=== PATIENT | female | born 1990 | race American Indian/Alaskan Native ===

== ENCOUNTER 2020-12-22 03:33 | Inpatient (IN) | payer BC ==
[2020-12-22] MEDS ORDERED: diphenhydrAMINE 50 MG/ML SDV IVPUSH ONE (03:49)
[2020-12-22] MEDS ORDERED: Famotidine 20 MG/2 ML SDV IVPUSH ONE (03:52)
[2020-12-22] MEDS ORDERED: methylPREDNISolone Sodium Succinate 125 MG/2 ML SDV IVPUSH ONE (03:52)
[2020-12-22 04:25] LABS: ANION GAP 18.4 mEq/L (7-13); CHLORIDE,CL 98 mmol/L (98-107); SODIUM,NA 135 mmol/L (136-145)
[2020-12-22] MEDS ORDERED: Sodium Chloride 0.9% 1,000 ML IV ONE ×2 (04:43→06:20)
--- NOTE | 2020-12-22 05:23 | EDM.PDOC ---
ED HPI GENERAL MEDICAL PROBLEM - General Chief Complaint: Respiratory Problem Stated Complaint: can't breathe Time Seen by Provider: 12/22/20 03:37 Source of Information: Reports: Patient, RN, RN Notes Reviewed History Limitations: Reports: Respiratory Distress - History of Present Illness INITIAL COMMENTS - FREE TEXT/NARRATIVE: Patient presents to the ED via personal vehicle with respiratory distress and pruritus. The patient reports she woke up this morning at approximately 0200 to shower and get ready for work. She reports a generalized pruritus prior to getting into the shower and noted a progressive feeling of pressure to her lips and throat while continuing to get ready. When she looked in the mirror she noticed a marked increase to her lips and a raised rash to her face, upper extremities, and trunk. She denies a history of anaphylaxis and denies known environmental allergies. She denies recent illness, fever, shaking chills, headache, cough, chest pain/pressure, nausea, vomiting, or diarrhea. She denies any possible triggers stating she has not come in contact with any new medications, foods, detergents, lotions, creams, or soaps. She denies tobacco, alcohol, or recreational drug use. Frontal Head Pain Score (Numeric/FACES): 9 - Related Data Allergies Allergy/AdvReac Type Severity Reaction Status Date / Time risperidone [From Risperdal] Allergy Cannot Verified 12/22/20 04:15 Remember Home Meds: Home Meds Sertraline HCl [Zoloft] 100 mg PO DAILY 12/22/20 [History] traZODone HCl [Trazodone HCl] 50 mg PO BEDTIME 12/22/20 [History] Past Medical History - Past Health History Medical/Surgical History: Denies Medical/Surgical History Social & Family History - Family History Family Medical History: No Pertinent Family History - Tobacco Use Tobacco Use Status *Q: Former Tobacco User Used Tobacco, but Quit: No - Caffeine Use Caffeine Use: Reports: Soda - Recreational Drug Use Recreational Drug Use: No ED ROS GENERAL - Review of Systems Review Of Systems: Comprehensive ROS is negative, except as noted in HPI. ED EXAM, GENERAL - Physical Exam Exam: See Below Exam Limited By: Respiratory Distress General Appearance: Alert, Severe Distress, Obese Eye Exam: Bilateral Eye: Conjunctival Injection, EOMI, PERRL (3mm) Ears: Normal Canal, Hearing Grossly Normal, Normal TMs. No: Normal External Exam (Erythema to bilateral auricles) Ear Exam: Bilateral Ear: Auricle Normal, Canal Normal, TM normal Throat/Mouth: Inflammation. No: Normal Lips (+3 edema to upper and lower lips), Normal Voice (Hoarse, raspy voice), No Airway Compromise (Edema to posterior oropharnyx) Head: Atraumatic, Normocephalic, Other (Fine urticarial rash to face) Neck: Normal Inspection, Supple, Non-Tender, Full Range of Motion Respiratory/Chest: Lungs Clear, Respiratory Distress, Accessory Muscle Use. No: Crackles, Rales, Rhonchi, Wheezing, Stridor Cardiovascular: Normal Peripheral Pulses, Regular Rate, Rhythm, No Edema, No Gallop, No JVD, No Murmur, No Rub, Tachycardia Peripheral Pulses: 2+: Radial (L), Radial (R) GI/Abdominal: Normal Bowel Sounds, Soft, Non-Tender, No Distention, No Mass, Pelvis Stable, Other (Fine urticarial rash scattered to abdomen) (Female) Exam: Deferred Rectal (Female) Exam: Deferred Back Exam: Full Range of Motion, Other (Fine urticarial rash scattered to back ) Extremities: Normal Range of Motion, Non-Tender, No Pedal Edema, Normal Capillary Refill, Increased Warmth, Redness, Other (Fine urticarial rash scattered to bilateral upper extremities). No: Joint Swelling, Mottled, Pallor Neurological: Alert, Oriented, CN II-XII Intact, Normal Cognition, Normal Gait, No Motor/Sensory Deficits Psychiatric: Anxious, Tearful Skin Exam: Rash (Fine urticarial rash scattered to face, trunk, and upper extremities) Course - Vital Signs Last Recorded V/S: Last Vital Signs Temp 97.2 F 12/22/20 16:00 Pulse 122 H 12/22/20 16:00 Resp 20 12/22/20 16:00 BP 127/79 12/22/20 16:00 Pulse Ox 95 12/22/20 16:00 - Orders/Labs/Meds Orders: Active Orders 24 hr Category Date Time Status CULTURE URINE [RM] Stat Lab 12/22/20 03:38 Received Medication Orders Diphenhydramine HCl (Benadryl) 25 mg IVPUSH Q4H PRN PRN Reason: Itching Last Admin: 12/22/20 18:06 Dose: 25 mg Documented by: Admin: 12/22/20 10:06 Dose: 25 mg Documented by: DANETTE Enoxaparin Sodium (Lovenox) 40 mg SUBCUT DAILY [facility] Last Admin: 12/22/20 09:36 Dose: 40 mg Documented by: DANETTE Sodium Chloride (Normal Saline) 1,000 mls @ 150 mls/hr IV ASDIRECTED [facility] Last Admin: 12/22/20 18:06 Dose: 150 mls/hr Documented by: Infusion: 12/22/20 16:18 Dose: 150 mls/hr Documented by: Admin: 12/22/20 09:37 Dose: 150 mls/hr Documented by: DANETTE Sertraline HCl (Zoloft) 100 mg PO DAILY [facility] Sodium Chloride (Saline Flush) 10 ml FLUSH ASDIRECTED PRN PRN Reason: Keep Vein Open Trazodone HCl (Trazodone) 50 mg PO BEDTIME [facility] Labs: Laboratory Tests 12/22/20 12/22/20 12/22/20 Range/Units 03:38 03:38 03:38 WBC (5.0-10.0) 10^3/uL RBC (4.2-5.4) 10^6/uL Hgb (12.0-16.0) g/dL Hct (37.0-47.0) % MCV (80-100) fL MCH (27.0-34.0) pg MCHC (33.0-35.0) g/dL Plt Count (150-450) 10^3/uL Neut % (Auto) (42.2-75.2) % Lymph % (Auto) (20.5-50.1) % [place] % (Auto) (2-8) % Eos % (Auto) (1.0-3.0) % Baso % (Auto) (0.0-1.0) % Add Manual Diff Neutrophils % (Manual) (42-75) % Lymphocytes % (Manual) (20-50) % Monocytes % (Manual) (2-8) % Eosinophils % (Manual) (1-3) % Atypical Lymphocytes Sodium (136-145) mmol/L Potassium (3.5-5.1) mmol/L Chloride (98-107) mmol/L Carbon Dioxide (21-32) mmol/L Anion Gap (7-13) mEq/L BUN (7-18) mg/dL Creatinine (0.55-1.02) mg/dL Est Cr Clr Drug Dosing mL/min Estimated GFR (MDRD) BUN/Creatinine Ratio (No establ ref range) Glucose (74-99) mg/dL Calcium (8.5-10.1) mg/dL Total Bilirubin (0.2-1.0) mg/dL AST (15-37) U/L ALT (14-59) U/L Alkaline Phosphatase (46-116) U/L Troponin I (0.000-0.056) ng/mL Total Protein (6.4-8.2) g/dL Albumin (3.4-5.0) g/dL Globulin Albumin/Globulin Ratio Urine Color Yellow (YELLOW) Urine Appearance Cloudy (CLEAR) Urine pH 5.5 (5.0-9.0) Ur Specific [place] >= 1.030 (1.005-1.030) Urine Protein 30 H (NEGATIVE) Urine Glucose (UA) 100 H (NEGATIVE) Urine Ketones Trace H (NEGATIVE) Urine Occult Blood Negative (NEGATIVE) Urine Nitrite Negative (NEGATIVE) Urine Bilirubin Small H (NEGATIVE) Urine Urobilinogen 0.2 (0.2-1.0) mg/dL Ur Leukocyte Esterase Small H (NEGATIVE) Urine RBC Not seen /HPF Urine WBC 10-20 H (0-5/HPF) /HPF Ur Epithelial Cells Moderate H (NOT SEEN) /HPF Amorphous Sediment Few (NOT SEEN) /HPF Urine Bacteria Few (0-FEW/HPF) /HPF Urine Mucus Rare (NOT SEEN) /LPF Urine HCG, Qual Negative Urine Opiates Screen Negative (NEGATIVE) Ur Oxycodone Screen Negative (NEGATIVE) Urine Methadone Screen Negative (NEGATIVE) Ur Barbiturates Screen Negative (NEGATIVE) U Tricyclic Antidepress Negative (NEGATIVE) Ur Phencyclidine Scrn Negative (NEGATIVE) Ur Amphetamine Screen Negative (NEGATIVE) U Methamphetamines Scrn Negative (NEGATIVE) Urine MDMA Screen Negative (NEGATIVE) U Benzodiazepines Scrn Negative (NEGATIVE) Urine Cocaine Screen Negative (NEGATIVE) U Marijuana (THC) Screen Negative (NEGATIVE) 12/22/20 12/22/20 12/22/20 Range/Units 03:43 03:48 03:48 WBC 11.2 H (5.0-10.0) 10^3/uL RBC 6.06 H (4.2-5.4) 10^6/uL Hgb 13.7 D (12.0-16.0) g/dL Hct 42.5 (37.0-47.0) % MCV 70.1 L (80-100) fL MCH 22.6 L (27.0-34.0) pg MCHC 32.2 L (33.0-35.0) g/dL Plt Count 485 H (150-450) 10^3/uL Neut % (Auto) 52.0 (42.2-75.2) % Lymph % (Auto) 36.6 (20.5-50.1) % [place] % (Auto) 8.2 H (2-8) % Eos % (Auto) 3.0 (1.0-3.0) % Baso % (Auto) 0.2 (0.0-1.0) % Add Manual Diff Yes Neutrophils % (Manual) 56 (42-75) % Lymphocytes % (Manual) 36 (20-50) % Monocytes % (Manual) 5 (2-8) % Eosinophils % (Manual) 3 (1-3) % Atypical Lymphocytes Few Sodium 135 L (136-145) mmol/L Potassium 3.4 L (3.5-5.1) mmol/L Chloride 98 (98-107) mmol/L Carbon Dioxide 22 (21-32) mmol/L Anion Gap 18.4 H (7-13) mEq/L BUN 11 (7-18) mg/dL Creatinine 0.81 (0.55-1.02) mg/dL Est Cr Clr Drug Dosing 89.29 mL/min Estimated GFR (MDRD) > 60 BUN/Creatinine Ratio 13.6 (No establ ref range) Glucose 255 H (74-99) mg/dL Calcium 8.6 (8.5-10.1) mg/dL Total Bilirubin 0.3 (0.2-1.0) mg/dL AST 52 H (15-37) U/L ALT 100 H (14-59) U/L Alkaline Phosphatase 137 H (46-116) U/L Troponin I < 0.017 (0.000-0.056) ng/mL Total Protein 8.2 (6.4-8.2) g/dL Albumin 3.4 (3.4-5.0) g/dL Globulin 4.8 Albumin/Globulin Ratio 0.7 Urine Color (YELLOW) Urine Appearance (CLEAR) Urine pH (5.0-9.0) Ur Specific [place] (1.005-1.030) Urine Protein (NEGATIVE) Urine Glucose (UA) (NEGATIVE) Urine Ketones (NEGATIVE) Urine Occult Blood (NEGATIVE) Urine Nitrite (NEGATIVE) Urine Bilirubin (NEGATIVE) Urine Urobilinogen (0.2-1.0) mg/dL Ur Leukocyte Esterase (NEGATIVE) Urine RBC /HPF Urine WBC (0-5/HPF) /HPF Ur Epithelial Cells (NOT SEEN) /HPF Amorphous Sediment (NOT SEEN) /HPF Urine Bacteria (0-FEW/HPF) /HPF Urine Mucus (NOT SEEN) /LPF Urine HCG, Qual Urine Opiates Screen (NEGATIVE) Ur Oxycodone Screen (NEGATIVE) Urine Methadone Screen (NEGATIVE) Ur Barbiturates Screen (NEGATIVE) U Tricyclic Antidepress (NEGATIVE) Ur Phencyclidine Scrn (NEGATIVE) Ur Amphetamine Screen (NEGATIVE) U Methamphetamines Scrn (NEGATIVE) Urine MDMA Screen (NEGATIVE) U Benzodiazepines Scrn (NEGATIVE) Urine Cocaine Screen (NEGATIVE) U Marijuana (THC) Screen (NEGATIVE) Meds: Medications Generic Name Dose Route Start Last Admin Trade Name Freq PRN Reason Stop Dose Admin Diphenhydramine HCl 25 mg 12/22/20 09:30 12/22/20 18:06 Benadryl IVPUSH 25 mg Q4H PRN Administration Itching Enoxaparin Sodium 40 mg 12/22/20 09:00 12/22/20 09:36 Lovenox SUBCUT 40 mg DAILY [facility] Administration Sodium Chloride 1,000 mls @ 150 mls/hr 12/22/20 08:30 12/22/20 18:06 Normal Saline IV 150 mls/hr ASDIRECTED [facility] Administration Sertraline HCl 100 mg 12/23/20 09:00 Zoloft PO DAILY [facility] Sodium Chloride 10 ml 12/22/20 11:13 Saline Flush FLUSH ASDIRECTED PRN Keep Vein Open Trazodone HCl 50 mg 12/22/20 21:00 Trazodone PO BEDTIME [facility] Discontinued Medications Generic Name Dose Route Start Last Admin Trade Name Freq PRN Reason Stop Dose Admin Diphenhydramine HCl 50 mg 12/22/20 03:49 12/22/20 03:52 Benadryl IVPUSH 12/22/20 03:50 50 mg ONETIME ONE Administration Famotidine 20 mg 12/22/20 03:52 12/22/20 03:58 Pepcid IVPUSH 12/22/20 03:53 20 mg ONETIME ONE Administration Sodium Chloride 1,000 mls @ 999 mls/hr 12/22/20 04:43 12/22/20 04:46 Normal Saline IV 12/22/20 05:43 999 mls/hr .BOLUS ONE Administration Sodium Chloride 1,000 mls @ 999 mls/hr 12/22/20 06:20 12/22/20 06:28 Normal Saline IV 12/22/20 07:20 999 mls/hr .BOLUS ONE Administration Methylprednisolone Sodium Succinate 125 mg 12/22/20 03:52 12/22/20 04:01 Solu-Medrol IVPUSH 12/22/20 03:53 125 mg ONETIME ONE Administration - Radiology Interpretation Free Text/Narrative:: [facility] Final Radiology Report Call: [phone] assistance Online chat: [email or web address] Name: MIKAL DUARTE Age: 30Years F Date: 12/22/2020 SSN: -- : [id number] Study: CR CHEST 1V FRONTAL Requesting Physician: Neha Rodrigues Images: 1 Addl Studies: Provided Clinical History: Shortness of breath Contrast: Contrast Medium: Contrast Amount: Contrast Method: CONFIDENTIALITY STATEMENT This report is intended only for use by the referring physician, and only in accordance with law. If you received this in error, call [phone]. Page 1 of 1 PROCEDURE INFORMATION: Exam: XR Chest Exam date and time: 12/22/2020 4:57 AM Age: 30 years old Clinical indication: Other: Shortness of breath TECHNIQUE: Imaging protocol: XR of the chest Views: 1 view. COMPARISON: No relevant prior studies available. FINDINGS: Lungs: Unremarkable. No consolidation. Pleural spaces: Unremarkable. No pleural effusion. No pneumothorax. Heart/Mediastinum: Unremarkable. No cardiomegaly. Bones/joints: Unremarkable. IMPRESSION: No acute findings. Thank you for allowing us to participate in the care of your patient. Dictated and Authenticated by: Wiley Dyson MD 12/22/2020 5:34 AM Central Time ([place] & [place]) - Re-Assessments/Exams Free Text/Narrative Re-Assessment/Exam: 12/22/20 Benadryl 50mg IVP, Pepcid 20mg IVP, and Solu-Medrol 125mg IVP administered for anaphylaxis. Blood pressure remains stable at 109/84, however HR sustains in the 130s. NS 1L bolus initiated. CXR unremarkable for acute processes. Troponin WNL. Results of lab values and imaging discussed with patient. Patient reports improvement in pressure to throat and lips; she feels as though her voice is not so raspy. Patient's HR slightly improved to 120s. BP remains stable at 119/81. Oxygen saturations appropriate at 98% on RA. Given persistent tachycardia and degree of edema, case discussed with Dr. Landry who agreed to accept patient for inpatient admission. Dr. Landry requests two additional NS 1L bolus' and to trend Lactic Acid. Patient verbalized understanding and agreement with the plan of care. Departure - Departure Time of Disposition: 07:43 Disposition: Admitted As Inpatient 68 Condition: Good Clinical Impression: Anaphylactic reaction Qualifiers: Encounter type: initial encounter Qualified Code(s): T78.2XXA - Anaphylactic shock, unspecified, initial encounter - Discharge Information Sepsis Event Note (ED) - Evaluation Sepsis Screening Result: No Definite Risk - My Orders Last 24 Hours: My Active Orders 12/22/20 03:38 CULTURE URINE [RM] Stat - Assessment/Plan Last 24 Hours: My Active Orders 12/22/20 03:38 CULTURE URINE [RM] Stat
--- NOTE | 2020-12-22 05:34 | CR ---
PROCEDURE INFORMATION: Exam: XR Chest Exam date and time: 12/22/2020 4:57 AM Age: 30 years old Clinical indication: Other: Shortness of breath TECHNIQUE: Imaging protocol: XR of the chest Views: 1 view. COMPARISON: No relevant prior studies available. FINDINGS: Lungs: Unremarkable. No consolidation. Pleural spaces: Unremarkable. No pleural effusion. No pneumothorax. Heart/Mediastinum: Unremarkable. No cardiomegaly. Bones/joints: Unremarkable. IMPRESSION: No acute findings.
[2020-12-22] MEDS: Enoxaparin 40 MG/0.4 ML Syringe SUBCUT SCH (09:36)
[2020-12-22] MEDS: Sodium Chloride 0.9% 1,000 ML IV SCH ×2 (09:37→18:06)
[2020-12-22] MEDS: diphenhydrAMINE 50 MG/ML SDV IVPUSH PRN ×3 (10:06→22:19)
[2020-12-22] MEDS ORDERED: Sodium Chloride 0.9% 10 ML Syringe FLUSH PRN (11:13)
--- NOTE | 2020-12-22 19:52 | PCM.HP ---
H&P History of Present Illness - General Date of Service: 12/22/20 Admit Problem/Dx: Admission Diagnosis/Problem Admission Diagnosis/Problem Anaphylaxis - History of Present Illness Initial Comments - Free Text/Narative: 30F w/ pmh depression and PTSD p/w facial swelling, hoarseness, body rash. Symptoms developed overnight. She has no hx of allergies. She denies any new cosmetics, pets, etc. Only thing out of the routine was she ate a box of Lunche-dariel last night prior to going to sleep. In the ED she was noted w/ angioedema of lips, eyes, posterior oropharynx, tachycardic and borderline BPs. She responded to fluids, IV pepcid, benadryl and solumedrol. By the time of my evaluation at ~0615 she had been steadily improving. Frontal Head Pain Score (Numeric/FACES): 9 - Related Data Allergies/Adverse Reactions: Allergies Allergy/AdvReac Type Severity Reaction Status Date / Time risperidone [From Risperdal] Allergy Cannot Verified 12/22/20 04:15 Remember Home Medications: Home Meds Sertraline HCl [Zoloft] 100 mg PO DAILY 12/22/20 [History] traZODone HCl [Trazodone HCl] 50 mg PO BEDTIME 12/22/20 [History] Past Medical History Psychiatric History: Reports: Depression - Past Surgical History GI Surgical History: Reports: Cholecystectomy Social & Family History - Family History Family Medical History: No Pertinent Family History Cardiac: Reports: Other (See Below) (multiple family members w/ heart disease) OBGYN: Reports: Other (See Below) (mother w/ breast and uterine ca) - Tobacco Use Tobacco Use Status *Q: Former Tobacco User Years of Tobacco use: 15 Used Tobacco, but Quit: Yes Month/Year Tobacco Last Used: 12/2019 - Caffeine Use Caffeine Use: Reports: None - Recreational Drug Use Recreational Drug Use: No H&P Review of Systems - Review of Systems: Review Of Systems: See Below General: Reports: Diaphoresis HEENT: Reports: Sore Throat, Other (eye swelling, hoarseness, lip swelling) Pulmonary: Reports: No Symptoms. Denies: Shortness of Breath Cardiovascular: Reports: Palpitations Gastrointestinal: Denies: Abdominal Pain Genitourinary: Reports: No Symptoms. Denies: Dysuria Musculoskeletal: Reports: No Symptoms Skin: Reports: Diaphoresis Psychiatric: Reports: No Symptoms Neurological: Reports: No Symptoms Exam - Exam Exam: See Below - Vital Signs Vital Signs: Last Vital Signs Temp 97.2 F 12/22/20 16:00 Pulse 122 H 12/22/20 16:00 Resp 20 12/22/20 16:00 BP 127/79 12/22/20 16:00 Pulse Ox 95 12/22/20 16:00 Weight: 276 lb 6.4 oz - Exam Quality Assessment: No: Supplemental Oxygen General: Alert, Oriented HEENT: Conjunctiva Clear Neck: Supple Lungs: Clear to Auscultation, Normal Respiratory Effort Cardiovascular: Regular Rate, Regular Rhythm, Tachycardia GI/Abdominal Exam: Normal Bowel Sounds, Soft, Non-Tender, No Distention, Other (morbidly obese) Back Exam: Normal Inspection Extremities: Normal Inspection, Normal Range of Motion, Non-Tender, No Pedal Edema Skin: Other (lacy rash over upper trunk and b/l proximal UE) Neurological: Cranial Nerves Intact Neuro Extensive - Mental Status: Alert, Oriented x3, Normal Mood/Affect Neuro Extensive - Motor, Sensory, Reflexes: CN II-XII Intact Psychiatric: Alert, Normal Affect, Normal Mood - Patient Data Lab Results Last 24 hrs: Laboratory Results - last 24 hr 12/22/20 12/22/20 12/22/20 Range/Units 03:38 03:38 03:38 WBC (5.0-10.0) 10^3/uL RBC (4.2-5.4) 10^6/uL Hgb (12.0-16.0) g/dL Hct (37.0-47.0) % MCV (80-100) fL MCH (27.0-34.0) pg MCHC (33.0-35.0) g/dL Plt Count (150-450) 10^3/uL Neut % (Auto) (42.2-75.2) % Lymph % (Auto) (20.5-50.1) % [place] % (Auto) (2-8) % Eos % (Auto) (1.0-3.0) % Baso % (Auto) (0.0-1.0) % Add Manual Diff Neutrophils % (Manual) (42-75) % Lymphocytes % (Manual) (20-50) % Monocytes % (Manual) (2-8) % Eosinophils % (Manual) (1-3) % Atypical Lymphocytes Sodium (136-145) mmol/L Potassium (3.5-5.1) mmol/L Chloride (98-107) mmol/L Carbon Dioxide (21-32) mmol/L Anion Gap (7-13) mEq/L BUN (7-18) mg/dL Creatinine (0.55-1.02) mg/dL Est Cr Clr Drug Dosing mL/min Estimated GFR (MDRD) BUN/Creatinine Ratio (No establ ref range) Glucose (74-99) mg/dL Lactic Acid (0.4-2.0) mmol/L Calcium (8.5-10.1) mg/dL Total Bilirubin (0.2-1.0) mg/dL AST (15-37) U/L ALT (14-59) U/L Alkaline Phosphatase (46-116) U/L Troponin I (0.000-0.056) ng/mL Total Protein (6.4-8.2) g/dL Albumin (3.4-5.0) g/dL Globulin Albumin/Globulin Ratio Urine Color Yellow (YELLOW) Urine Appearance Cloudy (CLEAR) Urine pH 5.5 (5.0-9.0) Ur Specific [place] >= 1.030 (1.005-1.030) Urine Protein 30 H (NEGATIVE) Urine Glucose (UA) 100 H (NEGATIVE) Urine Ketones Trace H (NEGATIVE) Urine Occult Blood Negative (NEGATIVE) Urine Nitrite Negative (NEGATIVE) Urine Bilirubin Small H (NEGATIVE) Urine Urobilinogen 0.2 (0.2-1.0) mg/dL Ur Leukocyte Esterase Small H (NEGATIVE) Urine RBC Not seen /HPF Urine WBC 10-20 H (0-5/HPF) /HPF Ur Epithelial Cells Moderate H (NOT SEEN) /HPF Amorphous Sediment Few (NOT SEEN) /HPF Urine Bacteria Few (0-FEW/HPF) /HPF Urine Mucus Rare (NOT SEEN) /LPF Urine HCG, Qual Negative Urine Opiates Screen Negative (NEGATIVE) Ur Oxycodone Screen Negative (NEGATIVE) Urine Methadone Screen Negative (NEGATIVE) Ur Barbiturates Screen Negative (NEGATIVE) U Tricyclic Antidepress Negative (NEGATIVE) Ur Phencyclidine Scrn Negative (NEGATIVE) Ur Amphetamine Screen Negative (NEGATIVE) U Methamphetamines Scrn Negative (NEGATIVE) Urine MDMA Screen Negative (NEGATIVE) U Benzodiazepines Scrn Negative (NEGATIVE) Urine Cocaine Screen Negative (NEGATIVE) U Marijuana (THC) Screen Negative (NEGATIVE) SARS-CoV-2 RNA (CARYL) (NEGATIVE) 12/22/20 12/22/20 12/22/20 Range/Units 03:43 03:48 03:48 WBC 11.2 H (5.0-10.0) 10^3/uL RBC 6.06 H (4.2-5.4) 10^6/uL Hgb 13.7 D (12.0-16.0) g/dL Hct 42.5 (37.0-47.0) % MCV 70.1 L (80-100) fL MCH 22.6 L (27.0-34.0) pg MCHC 32.2 L (33.0-35.0) g/dL Plt Count 485 H (150-450) 10^3/uL Neut % (Auto) 52.0 (42.2-75.2) % Lymph % (Auto) 36.6 (20.5-50.1) % [place] % (Auto) 8.2 H (2-8) % Eos % (Auto) 3.0 (1.0-3.0) % Baso % (Auto) 0.2 (0.0-1.0) % Add Manual Diff Yes Neutrophils % (Manual) 56 (42-75) % Lymphocytes % (Manual) 36 (20-50) % Monocytes % (Manual) 5 (2-8) % Eosinophils % (Manual) 3 (1-3) % Atypical Lymphocytes Few Sodium 135 L (136-145) mmol/L Potassium 3.4 L (3.5-5.1) mmol/L Chloride 98 (98-107) mmol/L Carbon Dioxide 22 (21-32) mmol/L Anion Gap 18.4 H (7-13) mEq/L BUN 11 (7-18) mg/dL Creatinine 0.81 (0.55-1.02) mg/dL Est Cr Clr Drug Dosing 89.29 mL/min Estimated GFR (MDRD) > 60 BUN/Creatinine Ratio 13.6 (No establ ref range) Glucose 255 H (74-99) mg/dL Lactic Acid (0.4-2.0) mmol/L Calcium 8.6 (8.5-10.1) mg/dL Total Bilirubin 0.3 (0.2-1.0) mg/dL AST 52 H (15-37) U/L ALT 100 H (14-59) U/L Alkaline Phosphatase 137 H (46-116) U/L Troponin I < 0.017 (0.000-0.056) ng/mL Total Protein 8.2 (6.4-8.2) g/dL Albumin 3.4 (3.4-5.0) g/dL Globulin 4.8 Albumin/Globulin Ratio 0.7 Urine Color (YELLOW) Urine Appearance (CLEAR) Urine pH (5.0-9.0) Ur Specific [place] (1.005-1.030) Urine Protein (NEGATIVE) Urine Glucose (UA) (NEGATIVE) Urine Ketones (NEGATIVE) Urine Occult Blood (NEGATIVE) Urine Nitrite (NEGATIVE) Urine Bilirubin (NEGATIVE) Urine Urobilinogen (0.2-1.0) mg/dL Ur Leukocyte Esterase (NEGATIVE) Urine RBC /HPF Urine WBC (0-5/HPF) /HPF Ur Epithelial Cells (NOT SEEN) /HPF Amorphous Sediment (NOT SEEN) /HPF Urine Bacteria (0-FEW/HPF) /HPF Urine Mucus (NOT SEEN) /LPF Urine HCG, Qual Urine Opiates Screen (NEGATIVE) Ur Oxycodone Screen (NEGATIVE) Urine Methadone Screen (NEGATIVE) Ur Barbiturates Screen (NEGATIVE) U Tricyclic Antidepress (NEGATIVE) Ur Phencyclidine Scrn (NEGATIVE) Ur Amphetamine Screen (NEGATIVE) U Methamphetamines Scrn (NEGATIVE) Urine MDMA Screen (NEGATIVE) U Benzodiazepines Scrn (NEGATIVE) Urine Cocaine Screen (NEGATIVE) U Marijuana (THC) Screen (NEGATIVE) SARS-CoV-2 RNA (CARYL) (NEGATIVE) 12/22/20 12/22/20 Range/Units 06:28 06:29 WBC (5.0-10.0) 10^3/uL RBC (4.2-5.4) 10^6/uL Hgb (12.0-16.0) g/dL Hct (37.0-47.0) % MCV (80-100) fL MCH (27.0-34.0) pg MCHC (33.0-35.0) g/dL Plt Count (150-450) 10^3/uL Neut % (Auto) (42.2-75.2) % Lymph % (Auto) (20.5-50.1) % [place] % (Auto) (2-8) % Eos % (Auto) (1.0-3.0) % Baso % (Auto) (0.0-1.0) % Add Manual Diff Neutrophils % (Manual) (42-75) % Lymphocytes % (Manual) (20-50) % Monocytes % (Manual) (2-8) % Eosinophils % (Manual) (1-3) % Atypical Lymphocytes Sodium (136-145) mmol/L Potassium (3.5-5.1) mmol/L Chloride (98-107) mmol/L Carbon Dioxide (21-32) mmol/L Anion Gap (7-13) mEq/L BUN (7-18) mg/dL Creatinine (0.55-1.02) mg/dL Est Cr Clr Drug Dosing mL/min Estimated GFR (MDRD) BUN/Creatinine Ratio (No establ ref range) Glucose (74-99) mg/dL Lactic Acid 1.7 (0.4-2.0) mmol/L Calcium (8.5-10.1) mg/dL Total Bilirubin (0.2-1.0) mg/dL AST (15-37) U/L ALT (14-59) U/L Alkaline Phosphatase (46-116) U/L Troponin I (0.000-0.056) ng/mL Total Protein (6.4-8.2) g/dL Albumin (3.4-5.0) g/dL Globulin Albumin/Globulin Ratio Urine Color (YELLOW) Urine Appearance (CLEAR) Urine pH (5.0-9.0) Ur Specific [place] (1.005-1.030) Urine Protein (NEGATIVE) Urine Glucose (UA) (NEGATIVE) Urine Ketones (NEGATIVE) Urine Occult Blood (NEGATIVE) Urine Nitrite (NEGATIVE) Urine Bilirubin (NEGATIVE) Urine Urobilinogen (0.2-1.0) mg/dL Ur Leukocyte Esterase (NEGATIVE) Urine RBC /HPF Urine WBC (0-5/HPF) /HPF Ur Epithelial Cells (NOT SEEN) /HPF Amorphous Sediment (NOT SEEN) /HPF Urine Bacteria (0-FEW/HPF) /HPF Urine Mucus (NOT SEEN) /LPF Urine HCG, Qual Urine Opiates Screen (NEGATIVE) Ur Oxycodone Screen (NEGATIVE) Urine Methadone Screen (NEGATIVE) Ur Barbiturates Screen (NEGATIVE) U Tricyclic Antidepress (NEGATIVE) Ur Phencyclidine Scrn (NEGATIVE) Ur Amphetamine Screen (NEGATIVE) U Methamphetamines Scrn (NEGATIVE) Urine MDMA Screen (NEGATIVE) U Benzodiazepines Scrn (NEGATIVE) Urine Cocaine Screen (NEGATIVE) U Marijuana (THC) Screen (NEGATIVE) SARS-CoV-2 RNA (CARYL) Negative (NEGATIVE) Result Diagrams: 12/22/20 03:48 12/22/20 03:48 Problem List Initiated/Reviewed/Updated: No Orders Last 24hrs: Active Orders 24 hr Category Date Time Status Admission Diagnosis [ADT] Stat ADT 12/22/20 06:23 Ordered Admission Status [Patient Status] [ADT] Routine ADT 12/22/20 06:23 Active Patient Status [ADT] Routine ADT 12/22/20 08:23 Active Activity as Tolerated [RC] .Routine Care 12/22/20 11:51 Active Oxygen Therapy [RC] .PRN Care 12/22/20 08:23 Active Peripheral IV Care [RC] 08,20 Care 12/22/20 11:13 Active VTE/DVT Education [RC] Care 12/22/20 08:23 Active Vital Signs [RC] 00,04,08,12,16,20 Care 12/22/20 08:23 Active Consistent Carbohydrate Diet [DIET] Diet 12/22/20 Lunch Active COMPREHENSIVE METABOLIC PN,CMP [CHEM] AM Lab 12/23/20 05:11 Ordered CULTURE URINE [RM] Stat Lab 12/22/20 03:38 Received GLYCOSYLATED HEMOGLOBIN,HGBA1C [CHEM] AM Lab 12/23/20 05:11 Ordered LIPID PANEL [CHEM] AM Lab 12/23/20 05:11 Ordered Enoxaparin [Lovenox] Med 12/22/20 09:00 Active 40 mg SUBCUT DAILY Sertraline [Zoloft] Med 12/23/20 09:00 Active 100 mg PO DAILY Sodium Chloride 0.9% [Normal Saline] 1,000 ml Med 12/22/20 08:30 Active IV ASDIRECTED Sodium Chloride 0.9% [Saline Flush] Med 12/22/20 11:13 Active 10 ml FLUSH ASDIRECTED PRN diphenhydrAMINE [Benadryl] Med 12/22/20 09:30 Active 25 mg IVPUSH Q4H PRN traZODone Med 12/22/20 21:00 Active 50 mg PO BEDTIME Peripheral IV Insertion Adult [OM.PC] Routine Oth 12/22/20 11:13 Ordered Resuscitation Status Routine Resus Stat 12/22/20 08:23 Ordered Medication Orders Diphenhydramine HCl (Benadryl) 25 mg IVPUSH Q4H PRN PRN Reason: Itching Last Admin: 12/22/20 18:06 Dose: 25 mg Documented by: Admin: 12/22/20 10:06 Dose: 25 mg Documented by: DANETTE Enoxaparin Sodium (Lovenox) 40 mg SUBCUT DAILY [facility] Last Admin: 12/22/20 09:36 Dose: 40 mg Documented by: DANETTE Sodium Chloride (Normal Saline) 1,000 mls @ 150 mls/hr IV ASDIRECTED [facility] Last Admin: 12/22/20 18:06 Dose: 150 mls/hr Documented by: Infusion: 12/22/20 16:18 Dose: 150 mls/hr Documented by: Admin: 12/22/20 09:37 Dose: 150 mls/hr Documented by: DANETTE Sertraline HCl (Zoloft) 100 mg PO DAILY [facility] Sodium Chloride (Saline Flush) 10 ml FLUSH ASDIRECTED PRN PRN Reason: Keep Vein Open Trazodone HCl (Trazodone) 50 mg PO BEDTIME [facility] Assessment/Plan Comment:: #allergic reaction w/ angioedema - possibly due to a food allergen in the Lunch- dariel - improved w/ ED cocktail - c/w IVF - IV benadryl prn - will give prednis one in am - anticipate d/c home in the morning - counseled on need for an EPI pen on discharge PPX - LMWH Full code
[2020-12-22] MEDS ORDERED: traZODone 50 MG Tab PO SCH (21:00)
[2020-12-23] MEDS: Sodium Chloride 0.9% 1,000 ML IV SCH (02:56)
[2020-12-23] MEDS: Ibuprofen 400 MG Tab PO PRN ×2 (03:35→07:30)
[2020-12-23 07:30] LABS: HEMOGLOBIN A1C 8.7 % (<5.7)
[2020-12-23 07:31] LABS: CHLORIDE,CL 105 mmol/L (98-107); SODIUM,NA 142 mmol/L (136-145)
[2020-12-23] MEDS: diphenhydrAMINE 50 MG/ML SDV IVPUSH PRN (07:32)
[2020-12-23] MEDS ORDERED: predniSONE 20 MG Tab PO SCH (09:00)
[2020-12-23] MEDS ORDERED: Sertraline 50 MG Tab PO SCH (09:00)
[2020-12-23] MEDS: Enoxaparin 40 MG/0.4 ML Syringe SUBCUT SCH (09:10)
--- NOTE | 2020-12-23 19:19 | PCM.DCSUM1 ---
Discharge Summary - Hospital Course Free Text/Narrative:: 30F w/ pmh PTSD, depression p/w facial swelling, hoarseness, upper trunk and upper extremity rash. The only possible etiology was the Lunche-dariel she ate night prior. She was initially in moderate distress in the ED w/ posterior OP swelling, borderline BPs and tachycardia. She responded to steroids IV. She was admitted overnight given high risk of relapse and progressing angioedema. Given morbid obesity she was a high risk intubation if needed. She was discharged the following day w/ rx for epi pen in case of emergency, educated on proper use, and short course of prednisone. She was also dx w/ new diabetes. She was counseled and started on januvia and metformin. Diagnosis: Stroke: No - Discharge Data Discharge Date: 12/23/20 Discharge Disposition: Home, Self-Care 01 Condition: Good - Referral to Home Health Primary Care Physician: PCP Unobtainable - Patient Instructions Diet: Diabetic Diet Activity: As Tolerated, Full Weight Bearing Driving: May Drive Today Showering/Bathing: February Shower - Discharge Plan *PRESCRIPTION DRUG MONITORING PROGRAM REVIEWED*: Not Applicable *COPY OF PRESCRIPTION DRUG MONITORING REPORT IN PATIENT CRUZITO: Not Applicable Prescriptions/Med Rec: EPINEPHrine [Epipen] 0.3 mg IM ASDIRECTED PRN #1 pen PRN Reason: severe allergy SitaGLIPtin [Januvia] 100 mg PO DAILY #30 tab metFORMIN HCl [Metformin HCl] 1,000 mg PO BIDMEALS #60 tablet predniSONE 40 mg PO DAILY 3 Days #6 tablet Home Medications: Home Meds Sertraline HCl [Zoloft] 100 mg PO DAILY 12/22/20 [History] traZODone HCl [Trazodone HCl] 50 mg PO BEDTIME 12/22/20 [History] EPINEPHrine [Epipen] 0.3 mg IM ASDIRECTED PRN #1 pen 12/23/20 [Rx] SitaGLIPtin [Januvia] 100 mg PO DAILY #30 tab 12/23/20 [Rx] metFORMIN HCl [Metformin HCl] 1,000 mg PO BIDMEALS #60 tablet 12/23/20 [Rx] predniSONE 40 mg PO DAILY 3 Days #6 tablet 12/23/20 [Rx] Patient Handouts: Angioedema, [id number], Epinephrine injection (Auto- injector), Food Allergy, [id number], How to Use an Auto-Injector Pen, Metformin tablets, Prednisone tablets, Sitagliptin oral tablet Referrals: PCP,Unobtain [Primary Care Provider] - - Discharge Summary/Plan Comment DC Time >30 min.: Yes (35 min) - Patient Data Vitals - Most Recent: Last Vital Signs Temp 97.1 F 12/23/20 08:00 Pulse 101 H 12/23/20 08:00 Resp 18 12/23/20 08:00 BP 118/78 12/23/20 08:00 Pulse Ox 99 12/23/20 08:00 Weight - Most Recent: 276 lb 6.4 oz I&O - Last 24 hours: Intake & Output 12/23/20 12/23/20 12/23/20 06:59 14:59 22:59 Intake Total 804 665 Output Total 600 Balance 204 665 Lab Results - Last 24 hrs: Laboratory Results - last 24 hr 12/23/20 12/23/20 Range/Units 06:18 06:18 Sodium 142 (136-145) mmol/L Potassium 4.0 (3.5-5.1) mmol/L Chloride 105 (98-107) mmol/L Carbon Dioxide 25 (21-32) mmol/L Anion Gap 16.0 H (7-13) mEq/L BUN 11 (7-18) mg/dL Creatinine 0.63 (0.55-1.02) mg/dL Est Cr Clr Drug Dosing 114.80 mL/min Estimated GFR (MDRD) > 60 BUN/Creatinine Ratio 17.5 (No establ ref range) Glucose 133 H (74-99) mg/dL Hemoglobin A1c 8.7 H (<5.7) % Calcium 8.0 L (8.5-10.1) mg/dL Total Bilirubin 0.3 (0.2-1.0) mg/dL AST 48 H (15-37) U/L ALT 92 H (14-59) U/L Alkaline Phosphatase 92 (46-116) U/L Total Protein 7.3 (6.4-8.2) g/dL Albumin 3.1 L (3.4-5.0) g/dL Globulin 4.2 Albumin/Globulin Ratio 0.74 Triglycerides 102 (0-149) mg/dL Cholesterol 178 (0-199) mg/dL LDL Cholesterol, Calc 127 H (0-100) mg/dL HDL Cholesterol 31 L (40-59) mg/dL Med Orders - Current: Current Medications Discontinued Medications Diphenhydramine HCl (Benadryl) 50 mg IVPUSH ONETIME ONE Stop: 12/22/20 03:50 Last Admin: 12/22/20 03:52 Dose: 50 mg Documented by: Diphenhydramine HCl (Benadryl) 25 mg IVPUSH Q4H PRN PRN Reason: Itching Last Admin: 12/23/20 07:32 Dose: 25 mg Documented by: Enoxaparin Sodium (Lovenox) 40 mg SUBCUT DAILY [facility] Last Admin: 12/23/20 09:10 Dose: 40 mg Documented by: Famotidine (Pepcid) 20 mg IVPUSH ONETIME ONE Stop: 12/22/20 03:53 Last Admin: 12/22/20 03:58 Dose: 20 mg Documented by: Sodium Chloride (Normal Saline) 1,000 mls @ 999 mls/hr IV .BOLUS ONE Stop: 12/22/20 05:43 Last Admin: 12/22/20 04:46 Dose: 999 mls/hr Documented by: Sodium Chloride (Normal Saline) 1,000 mls @ 999 mls/hr IV .BOLUS ONE Stop: 12/22/20 07:20 Last Admin: 12/22/20 06:28 Dose: 999 mls/hr Documented by: Sodium Chloride (Normal Saline) 1,000 mls @ 100 mls/hr IV ASDIRECTED [facility] Last Admin: 12/23/20 02:56 Dose: 100 mls/hr Documented by: Ibuprofen (Motrin) 400 mg PO Q4H PRN PRN Reason: Pain Last Admin: 12/23/20 07:30 Dose: 400 mg Documented by: Methylprednisolone Sodium Succinate (Solu-Medrol) 125 mg IVPUSH ONETIME ONE Stop: 12/22/20 03:53 Last Admin: 12/22/20 04:01 Dose: 125 mg Documented by: Prednisone (Prednisone) 40 mg PO DAILY [facility] Last Admin: 12/23/20 09:09 Dose: 40 mg Documented by: Sertraline HCl (Zoloft) 100 mg PO DAILY [facility] Last Admin: 12/23/20 09:08 Dose: 100 mg Documented by: Sodium Chloride (Saline Flush) 10 ml FLUSH ASDIRECTED PRN PRN Reason: Keep Vein Open Trazodone HCl (Trazodone) 50 mg PO BEDTIME [facility] Last Admin: 12/22/20 21:59 Dose: Not Given Documented by: - Exam Quality Assessment: Denies: Supplemental Oxygen General: Reports: Alert, Oriented HEENT: Reports: Pupils Equal Neck: Reports: Supple Lungs: Reports: Clear to Auscultation, Normal Respiratory Effort Cardiovascular: Reports: Regular Rate, Regular Rhythm, No Murmurs GI/Abdominal Exam: Normal Bowel Sounds, Soft, Non-Tender, No Distention Back Exam: Reports: Normal Inspection Extremities: Normal Inspection, Normal Range of Motion Skin: Reports: Other (neck w/ acanthosis nigricans) Neurological: Reports: No New Focal Deficit Psy/Mental Status: Reports: Alert, Normal Affect, Normal Mood
== END 2020-12-23 11:25 | disposition home or self-care (01) | DRG 811 ==
LOC: DL.ED 03:33 → DL.MS 06:23
PROVIDERS: ADMIT Internal Medicine; ATTEND Internal Medicine
DX: T78.3XXA Angioneurotic edema, initial encounter (principal); T78.2XXA Anaphylactic shock, unspecified, initial encounter; Z20.822 Contact with and (suspected) exposure to COVID-19; F32.9 Major depressive disorder, single episode, unspecified; E66.01 Morbid (severe) obesity due to excess calories; E11.9 Type 2 diabetes mellitus without complications; F43.10 Post-traumatic stress disorder, unspecified; Z28.82 Immunization not carried out because of caregiver refusal; Z88.8 Allergy status to other drugs, medicaments and biological substances; Z79.899 Other long term (current) drug therapy; Z90.49 Acquired absence of other specified parts of digestive tract; Z87.891 Personal history of nicotine dependence; Z68.42 Body mass index [BMI] 45.0-49.9, adult
CPT/HCPCS: 36415; 71045; 80053; 80061; 80305-QW; 81001; 81025; 83036; 83605; 84484; 85025; 87086; 87088; 87186; 96374; 96375; 99222; 99239; 99284; 99285-25; A9270-GY; J1200; J1650; J2930; J3490; J7030; J7512; U0002

== ENCOUNTER 2021-02-19 16:10 | Emergency (ER) | payer BC ==
[2021-02-19] MEDS ORDERED: Lidocaine 1% with EPINEPHrine 1:100,000 20 ML MDV INJECT ONE (16:25)
[2021-02-19] MEDS ORDERED: Bupivacaine 0.25%/EPINEPHrine 1:200,000 30 ML SDV INFILT ONE (16:26)
[2021-02-19] MEDS ORDERED: Bacitracin Oint 1 GM U/D Packet TOP ONE (16:50)
[2021-02-19] MEDS ORDERED: Cephalexin 500 MG Cap PO ONE (16:50)
--- NOTE | 2021-02-19 17:21 | EDM.PDOC ---
Scribed by Veronica Miller 02/19/21 [id number] for Gilberto Friedman MD ED HPI GENERAL MEDICAL PROBLEM - General Chief Complaint: Skin Complaint Stated Complaint: INFECTION ON LEFT LEG Time Seen by Provider: 02/19/21 16:14 Source of Information: Reports: Patient, RN, RN Notes Reviewed History Limitations: Reports: No Limitations - History of Present Illness INITIAL COMMENTS - FREE TEXT/NARRATIVE: Pt presents to ER with c/o a lump on her left inner thigh that started out as a skin tag, then began increasing in size after being struck by heavy falling boxes at work in 2011. Three days ago the pt GOOGLED it and followed online advise to tie a piece of dental floss tightly around the base of the lesion. It became painful after several hours, but she could not remove the dental floss due to swelling. Denies bleeding, drainage, fever, or chills. Hx of DM NID. Onset: Gradual Location: Reports: Lower Extremity, Left Quality: Reports: Ache Severity: Moderate Improves with: Reports: None Worsens with: Reports: None Associated Symptoms: Reports: No Other Symptoms - Related Data Allergies Allergy/AdvReac Type Severity Reaction Status Date / Time risperidone [From Risperdal] Allergy Cannot Verified 02/19/21 16:20 Remember Home Meds: Home Meds Sertraline HCl [Zoloft] 100 mg PO DAILY 12/22/20 [History] traZODone HCl [Trazodone HCl] 50 mg PO BEDTIME PRN 12/22/20 [History] EPINEPHrine [Epipen] 0.3 mg IM ASDIRECTED PRN #1 pen 12/23/20 [Rx] SitaGLIPtin [Januvia] 100 mg PO DAILY #30 tab 12/23/20 [Rx] metFORMIN HCl [Metformin HCl] 1,000 mg PO BIDMEALS #60 tablet 12/23/20 [Rx] lisinopriL [Lisinopril] 5 mg PO DAILY 02/19/21 [History] Past Medical History - Past Health History Medical/Surgical History: Denies Medical/Surgical History Psychiatric History: Reports: Depression - Past Surgical History GI Surgical History: Reports: Cholecystectomy Social & Family History - Family History Family Medical History: No Pertinent Family History Cardiac: Reports: Other (See Below) (multiple family members w/ heart disease) OBGYN: Reports: Other (See Below) (mother w/ breast and uterine ca) - Caffeine Use Caffeine Use: Reports: None - Living Situation & Occupation Living situation: Reports: with Family Occupation: Employed ED ROS GENERAL - Review of Systems Review Of Systems: Comprehensive ROS is negative, except as noted in HPI. ED EXAM, SKIN/RASH Exam: See Below Exam Limited By: No Limitations General Appearance: Alert, WD/WN, No Apparent Distress, Obese Throat/Mouth: Normal Lips, Normal Voice, No Airway Compromise Head: Atraumatic, Normocephalic Neck: Normal Inspection Respiratory/Chest: No Respiratory Distress, Lungs Clear, Normal Breath Sounds, No Accessory Muscle Use, Chest Non-Tender Cardiovascular: Normal Peripheral Pulses, Regular Rate, Rhythm, No Edema, Tachycardia GI/Abdominal: Normal Bowel Sounds, Soft, Non-Tender Extremities: No Pedal Edema, Normal Capillary Refill, Other (Left medial proximal thigh has a dusky pedunculated mass strangulated with dental virgilio (applied by the pt 3 days ago) the mass is 3.5cm long x 2.5cm diameter with the surrounding skin appearing normal.) Neurological: Alert, Oriented, Normal Cognition, No Motor/Sensory Deficits Psychiatric: Normal Affect, Normal Mood Skin: Warm, Dry, No Rash ED SKIN PROCEDURES - Additional/Other Procedure(s) Other (Free Text) Procedure(s): With verbal consent obtained and the pt and her mother acknowledging understanding of the risks, benefits, procedure, and after care. The area of the left thigh mass lesion was prepped with iodine scrub, sterile drapes, and chucks pads to protect under garments. The area was blocked with local infiltration of Lidocaine 1% with EPI 15cc total. An elliptical incision was made around the base of the lesion. Using blunt dissection the lesion was completely removed. The skin was closed with #5 interrupted sutures using 3-0 Ethilon. No measurable blood loss. No complications. Pt tolerated the procedure very well. Specimen was collected, pathology order completed and the specimen was submitted to lab. Course - Vital Signs Last Recorded V/S: Last Vital Signs Temp 97.1 F 02/19/21 16:16 Pulse 134 H 02/19/21 16:16 Resp 18 02/19/21 16:16 BP 154/98 H 02/19/21 16:16 Pulse Ox 98 02/19/21 16:16 - Orders/Labs/Meds Meds: Medications Discontinued Medications Generic Name Dose Route Start Last Admin Trade Name Bentley PRN Reason Stop Dose Admin Bacitracin 1 dose 02/19/21 16:50 02/19/21 16:56 Bacitracin Oint 1 Gm U/D Packet TOP 02/19/21 16:51 1 dose ONETIME ONE Administration Bupivacaine HCl/Epinephrine Bitart 30 ml 02/19/21 16:26 Bupivacaine 0.25%/Epinephrine 1:200,000 30 Ml Sdv INFILT 02/19/21 16:27 ONETIME ONE Cephalexin 500 mg 02/19/21 16:50 02/19/21 16:57 Cephalexin 500 Mg Cap PO 02/19/21 16:51 500 mg ONETIME ONE Administration Lidocaine/Epinephrine 20 ml 02/19/21 16:25 02/19/21 16:34 Lidocaine 1% With Epinephrine 1:100,000 20 Ml Mdv INJECT 02/19/21 16:26 20 ml ONETIME ONE Administration Departure - Departure Time of Disposition: 16:51 Disposition: Home, Self-Care 01 Condition: Good Clinical Impression: Mass of skin of left lower extremity - Discharge Information *PRESCRIPTION DRUG MONITORING PROGRAM REVIEWED*: Not Applicable *COPY OF PRESCRIPTION DRUG MONITORING REPORT IN PATIENT CRUZITO: Not Applicable Instructions: Excision of Skin Lesions, Care After Forms: ED Department Discharge Additional Instructions: Rx: Cephalexin 500mg Tylenol or Ibuprofen as needed for pain. Follow directions on label for dosing and precautions. Apply ice pack to excision area as needed for pain. Follow up in clinic in 10 to 12 days for suture removal. Pathology report may take up to 7 days. Sepsis Event Note (ED) - Focused Exam Vital Signs: Vital Signs Temp Pulse Resp BP Pulse Ox 02/19/21 16:16 97.1 F 134 H 18 154/98 H 98 I have read and agree with the documentation that has been completed regarding this visit. By signing this record, I attest that the documentation was completed in my physical presence and is an accurate record of the encounter.
== END 2021-02-19 17:05 | disposition home or self-care (01) ==
LOC: DL.ED 16:10
DX: R22.42 Localized swelling, mass and lump, left lower limb (principal); Z88.8 Allergy status to other drugs, medicaments and biological substances
CPT/HCPCS: 99282; A9270

== ENCOUNTER 2022-05-10 15:09 | Emergency (ER) | payer OTHER ==
[2022-05-10] MEDS ORDERED: Acetaminophen 500 MG Tab PO ONE (15:10)
[2022-05-10 17:35] LABS: CORONAVIRUS COVID-19 NAA NEGATIVE (NEGATIVE)
[2022-05-10 18:04] LABS: ANION GAP 13.2 mEq/L (7-13); CHLORIDE,CL 104 mmol/L (98-107); SODIUM,NA 139 mmol/L (136-145)
[2022-05-10 18:07] LABS: ESTIMATED GFR 123 mL/min (>=60)
[2022-05-10] MEDS ORDERED: Iopamidol 612 MG/ML 100 ML Bottle IVPUSH ONE (18:28)
[2022-05-10] MEDS ORDERED: Amoxicillin/Clavulanate K 875-125 MG Tab PO ONE (20:04)
== END 2022-05-10 20:27 | disposition home or self-care (01) ==
LOC: DL.ED 15:09
DX: R59.1 Generalized enlarged lymph nodes (principal); E10.9 Type 1 diabetes mellitus without complications; Z88.8 Allergy status to other drugs, medicaments and biological substances; Z79.899 Other long term (current) drug therapy; Z79.84 Long term (current) use of oral hypoglycemic drugs; Z90.49 Acquired absence of other specified parts of digestive tract; Z20.822 Contact with and (suspected) exposure to COVID-19
CPT/HCPCS: 0241U; 36415; 70491; 80053; 84703; 85025; 86140; 87081; 87430; 99284; A9270; Q9967

== ENCOUNTER 2022-12-06 20:00 | Emergency (ER) | payer SELFPAY ==
[2022-12-06] MEDS: Cephalexin 500 MG Cap PO ONE (20:29)
== END 2022-12-06 20:31 | disposition home or self-care (01) ==
LOC: DL.ED 20:00
DX: L03.012 Cellulitis of left finger (principal); L02.512 Cutaneous abscess of left hand; E10.9 Type 1 diabetes mellitus without complications; Z88.8 Allergy status to other drugs, medicaments and biological substances
CPT/HCPCS: 99283; A9270-GY